=== PATIENT | male | born 1970 | race Caucasian/White ===

== ENCOUNTER → 2016-10-19 14:18 | Outpatient (CLI) | payer OTHER | END | disposition home or self-care (01) | LOC: D.RAD 14:15 | DX: M46.92 Unspecified inflammatory spondylopathy, cervical region (principal) ==

== ENCOUNTER 2017-09-08 13:44 | Emergency (ER) | payer OTHER ==
[~2017-09-08] VITALS: Ht 182.9 cm; Wt 122.7 kg
[2017-09-08 14:13] VITALS: Ht 182.9 cm; Wt 122.7 kg
[2017-09-08] MEDS ORDERED: PRINIVIL20 MG PO (14:16)
[2017-09-08 16:22] VITALS: BP 153/96
== END 2017-09-08 16:23 | disposition home or self-care (01) ==
LOC: D.ER 13:44
DX: M54.2 Cervicalgia (principal); M25.512 Pain in left shoulder; M25.511 Pain in right shoulder; R07.81 Pleurodynia; M19.90 Unspecified osteoarthritis, unspecified site; I10 Essential (primary) hypertension; F17.200 Nicotine dependence, unspecified, uncomplicated

== ENCOUNTER 2019-10-05 01:40 | Inpatient (IN) | payer OTHER ==
[2019-10-05] VITALS (7 sets, daily range): BP systolic 115–142; BP diastolic 80–95; BMI 41.6
[~2019-10-05] VITALS: Ht 182.9 cm; Wt 138.8 kg
[~2019-10-05 01:40] MED LIST: PRINIVIL20 MG PO
[2019-10-05] MEDS ORDERED: IBUPROFEN800 MG PO (01:47)
[2019-10-05] MEDS ORDERED: PAMELOR 25 MG C25 MG PO (01:47)
[2019-10-05] MEDS ORDERED: BUTRANS1 EAC4 TRANSDERM (01:47)
[2019-10-05] MEDS ORDERED: LISINOPRIL-HCT1 EAC8 PO (01:47)
[2019-10-05] MEDS ORDERED: XANAX2 MG PO (01:48)
[2019-10-05] MEDS ORDERED: CYCLOBENZAPRINE10 MG PO (01:48)
[2019-10-05] MEDS ORDERED: TOPROL XL25 MG PO (01:48)
[2019-10-05] MEDS ORDERED: ZOCOR80 MG PO (01:49)
[2019-10-05 02:33] LABS: BASOPHILS 0.3 % (0-2); EOSINOPHILS 1.1 % (0-7); HEMATOCRIT 50.6 % (42.0-54.0); HEMOGLOBIN 17.7 g/dL (13.5-17.5); IMMATURE GRANULOCYTES 0.3 % (0-5); LYMPHOCYTES 19.1 % (15-50); MCH 32.2 pg (26.0-34.0); MEAN PLATELET VOLUME 9.7 fL (7.4-10.4); MONOCYTES 7.4 % (2-11); NEUTROPHILS 71.8 % (40-80); PLATELET COUNT 337 10x3/uL (130-400); RDW 13.7 % (11.5-14.5); WBC 15.1 10x3/uL (4.8-10.8)
[2019-10-05 02:40] LABS: UDS - AMPHET NEGATIVE QUAL (NEGATIVE); UDS - BARB NEGATIVE QUAL (NEGATIVE); UDS - BENZO POSITIVE QUAL (NEGATIVE); UDS - COCAINE NEGATIVE QUAL (NEGATIVE); UDS - OPIATE NEGATIVE QUAL (NEGATIVE); UDS - PCP NEGATIVE QUAL (NEGATIVE); UDS - THC NEGATIVE QUAL (NEGATIVE)
[2019-10-05 02:42] LABS: CALC OSMOLALITY 278 mosm/kg (275-300); CALCIUM 9.6 mg/dL (8.5-10.1); CARBON DIOXIDE 31.6 mmol/L (21.0-32.0); CHLORIDE - SERUM 99 mmol/L (98-107); GLUCOSE 166 mg/dL (74-106); POTASSIUM - SERUM 3.8 mmol/L (3.5-5.1); SODIUM 138 mmol/L (136-145); UREA NITROGEN 11 mg/dL (7-18); eGFR NON AFRICAN AMERICAN 84 mL/min (90-120)
[2019-10-05 02:50] LABS: BILIRUBIN NEGATIVE (NEGATIVE); GLUCOSE NEGATIVE (NEGATIVE); KETONE NEGATIVE (NEGATIVE); NITRITE NEGATIVE (NEGATIVE); UROBILINOGEN NORMAL (NORMAL)
[2019-10-05 02:52] LABS: BACTERIA FEW /hpf (NEGATIVE); EPITHELIAL CELLS 0-5 /hpf (0-5); HYALINE CAST 0-5 /lpf (NONE SEEN); RED CELLS - URINE 0-5 /hpf (0-5); WHITE CELLS - URINE 0-5 /hpf (NEGATIVE)
[2019-10-05 02:57] LABS: ALKALINE PHOSPHATASE 90 U/L (30-120); ALT (SGPT) 66 U/L (10-68); BILIRUBIN - TOTAL 0.43 mg/dL (0.2-1.3); C-REACTIVE PROTEIN 2.3 mg/dL (0.0-0.9); LIPASE 136 U/L (73-393); PRO BNP 42 pg/mL (0-125); PROTEIN - SERUM 7.7 g/dL (6.4-8.2)
[2019-10-05 02:58] LABS: TROPONIN-I < 0.017 ng/mL (0.000-0.060)
--- NOTE | 2019-10-05 08:49 | NUR ---
ASSESSMENT PER ADMIT FLOW SHEET. PATIENT IS WITHOUT DISTRESS. NGT ARACELI WU.ORIENTATION TO ROOM.CALL LIGHT IN REACH.
--- NOTE | 2019-10-05 14:28 | NUR ---
ADMINISTERED PRN MORPHINE FOR PAIN 6/10 IN ABDOMEN. TOLERATED WELL. RESTING COMFORTABLY AND DENIES ANY NEEDS.
--- NOTE | 2019-10-05 22:30 | NUR ---
PT REPORTS DR RICO STATED HE WOUOLD ADJUST/ADD PRN PAIN/ANXIETY MEDS. NO NEW ORDERS NOTED. CHARGE NURSE STATES SHE PAGED TRISHA AND WAS INFORMED HE IS TIED UP IN EMERGENCY AND TO TRY TO CALL AGAIN AFTER WHILE. PT INFORMED, VERBALIZED UNDERSTANDING. PTs FAMILY MEMBER CONCERNED PT UNABLE TO WEAR CPAP. 3L O2 APPLIED WHILE PT IS SLEEPING AND CONTINUOUS O2 MONITOR IN USE. NO FURTHER NEEDS VOICED, CTM.
--- NOTE | 2019-10-06 02:57 | NUR ---
I have reviewed this patient and I concur with the Shift Assessment completed by the Licensed Practical Nurse today this shift.
[2019-10-06 04:30] VITALS: BP 140/98
[2019-10-06 06:16] LABS: BASOPHILS 0.2 % (0-2); EOSINOPHILS 1.6 % (0-7); HEMATOCRIT 50.2 % (42.0-54.0); HEMOGLOBIN 16.7 g/dL (13.5-17.5); IMMATURE GRANULOCYTES 0.2 % (0-5); LYMPHOCYTES 23.1 % (15-50); MCH 31.5 pg (26.0-34.0); MCHC 33.3 g/dL (31.0-37.0); MEAN PLATELET VOLUME 9.7 fL (7.4-10.4); MONOCYTES 14.1 % (2-11); NEUTROPHILS 60.8 % (40-80); PLATELET COUNT 324 10x3/uL (130-400); RDW 14.5 % (11.5-14.5)
[2019-10-06 06:26] LABS: MCV 94.7 fL (80.0-100.0); WBC 10.9 10x3/uL (4.8-10.8)
[2019-10-06 06:30] LABS: ANION GAP 9.4 mmol/L (8-16); CALCIUM 8.7 mg/dL (8.5-10.1); CARBON DIOXIDE 29.7 mmol/L (21.0-32.0); CREATININE - SERUM 1.2 mg/dL (0.6-1.3); POTASSIUM - SERUM 4.1 mmol/L (3.5-5.1)
--- NOTE | 2019-10-06 07:16 | NUR ---
WALKING ROUNDS COMPLETE, PT VOICES BEING UNCOMFORTABLE ALL NIGHT, CALL PLACED TO DOCTOR TO CHANGE PAIN MEDS, WAITING ON REPLY, NO OTHER NEEDS VOICED, WILL MONITOR
[2019-10-06 08:09] VITALS: BP 137/89
--- NOTE | 2019-10-06 09:00 | NUR ---
GAVE PT SCHEDULED MEDS ALONG WITH MORPHINE 4MG IVP FOR PAIN, RATES PAIN 10/10 IN ABDOMEN, NO OTHER NEEDS VOICED, WILL MONITOR
--- NOTE | 2019-10-06 10:25 | NUR ---
PT UNHOOKED FROM NG TUBE SO HE CAN GO HAVE GASTROGRAFIN SWALLOW, PT TAKEN DOWN BY WHEELCHAIR, WILL MONITOR FOR RETURN
--- NOTE | 2019-10-06 12:01 | NUR ---
PT BACK IN ROOM, HOOKED BACK TO IV FLUIDS, PT WILL STAY UNHOOKED FROM NG TUBE TIL SWALLOW STUDY COMPLETE, PT IS AWARE OF NEEDING TO SIT UP AT THIS TIME, WILL MONITOR
--- NOTE | 2019-10-06 12:19 | NUR ---
HOOKED PT UP TO DILAUDID HIGHWAY WORKER, INSTRUCTED PT ON USE OF HIGHWAY WORKER, PT AND VERBALIZE UNDERSTANDING, WILL MONITOR
[2019-10-06 12:54] VITALS: BP 146/77
[2019-10-06 13:47] VITALS: Ht 182.9 cm; Wt 138.8 kg
--- NOTE | 2019-10-06 14:15 | NUR ---
HOOKED NG TUBE BACK TO LIS, PT IS FINISHED WITH SMALL BOWEL SERIES
--- NOTE | 2019-10-06 16:05 | NUR ---
REMOVED PT NG TUBE, PT TOLERATED WELL, EXPLAINED TO PT HE WAS ABLE TO HAVE CLEAR LIQUIDS, AT BEDSIDE, VERBALIZED UNDERSTANDING, WILL MONITOR
[2019-10-06 17:24] VITALS: BP 132/92
--- NOTE | 2019-10-06 19:45 | NUR ---
A&O X 4. PT STATES HE FEELS MUCH BETTER TODAY. TOLERATING CLD, NO N/V. STATES PAIN IS WELL CONTROLLED WITH SQUEAK RATTLE AND LEAK REPAIRER, HOME CPAP AT BEDSIDE, NO NEEDS AT THIS TIME.
[2019-10-06 20:00] VITALS: BP 126/86
[2019-10-07] VITALS: BP 120/70
--- NOTE | 2019-10-07 01:46 | NUR ---
I have reviewed this patient and I concur with the Shift Assessment completed by the Licensed Practical Nurse today this shift.
[2019-10-07 04:00] VITALS: BP 115/64
--- NOTE | 2019-10-07 04:00 | NUR ---
REPORTS HE FEELS GREAT. NO N/V. LOW PAIN LEVEL OF 2-3. PASSING GAS. CTM.
[2019-10-07 06:13] LABS: BASOPHILS 0.2 % (0-2); IMMATURE GRANULOCYTES 0.1 % (0-5); LYMPHOCYTES 29.5 % (15-50); MCH 31.4 pg (26.0-34.0); MCHC 33.3 g/dL (31.0-37.0); MCV 94.3 fL (80.0-100.0); MEAN PLATELET VOLUME 9.7 fL (7.4-10.4); MONOCYTES 13.3 % (2-11); NEUTROPHILS 53.9 % (40-80); PLATELET COUNT 272 10x3/uL (130-400); RDW 14.5 % (11.5-14.5); WBC 9.4 10x3/uL (4.8-10.8)
[2019-10-07 06:42] LABS: HEMATOCRIT 39.6 % (42.0-54.0); HEMOGLOBIN 13.2 g/dL (13.5-17.5)
[2019-10-07 06:51] LABS: CALC OSMOLALITY 276 mosm/kg (275-300); CALCIUM 7.6 mg/dL (8.5-10.1); CARBON DIOXIDE 25.4 mmol/L (21.0-32.0); CHLORIDE - SERUM 105 mmol/L (98-107); CREATININE - SERUM 0.9 mg/dL (0.6-1.3); POTASSIUM - SERUM 3.6 mmol/L (3.5-5.1); SODIUM 140 mmol/L (136-145); UREA NITROGEN 11 mg/dL (7-18); eGFR NON AFRICAN AMERICAN > 90 mL/min (90-120)
[2019-10-07 06:53] LABS: GLUCOSE 75 mg/dL (74-106)
[2019-10-07 08:50] VITALS: BP 108/67
--- NOTE | 2019-10-07 09:38 | NUR ---
PT ALERT AND ORIENTED X4 UPON ENETERING. ADMINISTERED MEDICATION, NO DIFFICULTIES. UPRIGHT ON BED SIDE. DENIES ANY NEEDS. WILL CONTINUE TO MONITOR.
--- NOTE | 2019-10-07 11:05 | NUR ---
PLACED NEW DILAUDID WATER SAFETY INSTRUCTOR SYRINGE. PT IN BEDSIDE CHAIR. FAMILY AT BEDSIDE. DENIES ANY NEEDS. WILL CONTINUE TO MONITOR.
--- NOTE | 2019-10-07 11:13 | NUR ---
I have reviewed this patient and I concur with the Shift Assessment completed by the Licensed Practical Nurse today this shift.
[2019-10-07 13:31] VITALS: BP 103/61
--- NOTE | 2019-10-07 15:05 | NUR ---
ADMINISTERED MEDICATION, NO DIFFICULTIES. PT IV IS INFILTRATED, DENIES ANY PAIN AND REQUESTED TO LEAVE IT IN BECAUSE HE IS ABOUT TO DC AND DOES NOT WANT ANOTHER TO HAVE TO BE PLACED. PROVIDED PT WITH A WARM COMPRESS AND DISCONNECTED ALL FLUIDS. DENIES ANY OTHER NEEDS. WILL CONTINUE TO MONITOR.
--- NOTE | 2019-10-07 18:22 | NUR ---
REMOVED IV FROM RIGHT AC WITH CATHETER TIP INTACT, COVERED WITH GAUZE AND TAPE. TOLERATED WELL. SLIGHT SWELLING TO THE ARM, INSTRUCTED PT TO APPLY WARM COMPRESS AT HOME TO HELP SWELLING GO DOWN. PT HAS SIGNED ALL NECESSARY DISCHARGE PAPERWORK. WILL BE ESCORTED OUT BY FAMILY MEMBER. DENIES NEEDING A WHEELCHAIR.
== END 2019-10-07 18:23 | disposition home or self-care (01) | DRG 390 ==
LOC: D.ER 01:40 → D.MS 05:42 → D.EDHOLD 05:42 → OBSVTIME 05:43 → D.EDHOLD 07:45 → D.MS 07:45 → D.EDHOLD 09:57 → D.MS 09:57
PROVIDERS: Family Medicine; ADMIT Family Medicine; ATTEND Family Medicine
PROC: 0D9670Z Drainage of Stomach with Drainage Device, Via Natural or Artificial Opening (ICD-10-PCS; principal; 2019-10-05)
DX: K56.50 Intestinal adhesions [bands], unspecified as to partial versus complete obstruction (principal); D49.512 Neoplasm of unspecified behavior of left kidney; I10 Essential (primary) hypertension; E78.5 Hyperlipidemia, unspecified

== ENCOUNTER → 2019-10-28 07:57 | Outpatient (CLI) | payer MEDICARE, OTHER ==
[2019-10-06 13:47] VITALS: BMI 41.5
[~2019-10-28 07:57] MED LIST changes: +BUTRANS1 EAC4 TRANSDERM; +CYCLOBENZAPRINE10 MG PO; +IBUPROFEN800 MG PO; +LISINOPRIL-HCT1 EAC8 PO; +PAMELOR 25 MG C25 MG PO; +TOPROL XL25 MG PO; +XANAX2 MG PO; +ZOCOR80 MG PO
== END | disposition home or self-care (01) ==
LOC: D.CT 10-23 08:30 → D.NM 07:57
PROVIDERS: ATTEND Urology
DX: N28.89 Other specified disorders of kidney and ureter (principal)

== ENCOUNTER 2019-12-01 05:40 | Day surgery (SDC) | payer MEDICARE, OTHER ==
[~2019-12-01] VITALS: Ht 185.4 cm; Wt 127.3 kg
[2019-12-01 06:26] LABS: BASOPHILS 0.4 % (0-2); EOSINOPHILS 3.1 % (0-7); HEMATOCRIT 46.6 % (42.0-54.0); IMMATURE GRANULOCYTES 0.2 % (0-5); LYMPHOCYTES 36.1 % (15-50); MCH 31.4 pg (26.0-34.0); MCHC 34.3 g/dL (31.0-37.0); MCV 91.4 fL (80.0-100.0); MEAN PLATELET VOLUME 9.7 fL (7.4-10.4); MONOCYTES 10.2 % (2-11); PLATELET COUNT 284 10x3/uL (130-400); RDW 14.2 % (11.5-14.5); WBC 9.9 10x3/uL (4.8-10.8)
[2019-12-01 06:41] VITALS: Ht 185.4 cm; Wt 127.3 kg
[2019-12-01 06:44] LABS: CALC OSMOLALITY 279 mosm/kg (275-300); CALCIUM 9.2 mg/dL (8.5-10.1); CARBON DIOXIDE 26.5 mmol/L (21.0-32.0); CHLORIDE - SERUM 102 mmol/L (98-107); POTASSIUM - SERUM 3.6 mmol/L (3.5-5.1); SODIUM 137 mmol/L (136-145); UREA NITROGEN 12 mg/dL (7-18); eGFR NON AFRICAN AMERICAN 84 mL/min (90-120)
[2019-12-01 06:51] LABS: GLUCOSE 206 mg/dL (74-106)
[2019-12-01 06:56] LABS: APTT 25.8 SECONDS (22.8-39.4); INR 0.96 (0.85-1.17); PROTIME 12.7 SECONDS (11.6-15.0)
[2019-12-01 09:27] VITALS: BP 116/79
--- NOTE | 2019-12-01 09:41 | NUR ---
0922 SEE POST PROCEDURE VITAL SIGNS CHECKLIST FOR VITAL SIGNS. TIME FRAME FOR TODAYS STAY GIVEN, BEDREST INSTRUCTIONS GIVEN.
== END 2019-12-01 13:05 | disposition home or self-care (01) ==
LOC: D.SP 05:40 → D.RAD 08:00 → D.SP 08:00
PROVIDERS: ATTEND General Practice
DX: D41.02 Neoplasm of uncertain behavior of left kidney (principal)

== ENCOUNTER 2020-06-20 14:51 | Inpatient (IN) | payer MEDICARE, OTHER ==
[~2020-06-20] VITALS: Ht 185.4 cm; Wt 129.3 kg
[2020-06-20 18:14] LABS: CALC OSMOLALITY 276 mosm/kg (275-300); CALCIUM 9.4 mg/dL (8.5-10.1); CARBON DIOXIDE 26.7 mmol/L (21.0-32.0); CHLORIDE - SERUM 100 mmol/L (98-107); CREATININE - SERUM 0.8 mg/dL (0.6-1.3); GLUCOSE 242 mg/dL (74-106); SODIUM 135 mmol/L (136-145); UREA NITROGEN 9 mg/dL (7-18); eGFR NON AFRICAN AMERICAN > 90 mL/min (90-120)
[2020-06-20 18:20] LABS: ALBUMIN 3.8 g/dL (3.4-5.0); ALKALINE PHOSPHATASE 112 U/L (30-120); ALT (SGPT) 65 U/L (10-68); BILIRUBIN - TOTAL 0.78 mg/dL (0.2-1.3); LIPASE 182 U/L (73-393); PROTEIN - SERUM 7.8 g/dL (6.4-8.2)
[2020-06-20 18:24] LABS: BILIRUBIN NEGATIVE (NEGATIVE); KETONE LARGE mg/dL (NEGATIVE); NITRITE NEGATIVE (NEGATIVE); UROBILINOGEN NORMAL mg/dL (< 2)
[2020-06-20 18:26] LABS: WHITE CELLS - URINE OCC HPF (0-1)
[2020-06-20 18:27] LABS: BACTERIA OCC HPF (NONE SEEN); SQUAMOUS EPITHELIAL OCC HPF (0-4)
[2020-06-20 18:35] LABS: BASOPHILS 0.2 % (0-2); EOSINOPHILS 1.1 % (0-7); HEMATOCRIT 50.3 % (42.0-54.0); HEMOGLOBIN 17.7 g/dL (13.5-17.5); IMMATURE GRANULOCYTES 0.2 % (0-5); LYMPHOCYTES 17.6 % (15-50); MCHC 35.2 g/dL (31.0-37.0); MEAN PLATELET VOLUME 10.5 fL (7.4-10.4); MONOCYTES 9.5 % (2-11); NEUTROPHIL ABS# 7.31 10x3/uL (1.78-5.38); NEUTROPHILS 71.4 % (40-80); RBC 5.53 10x6/uL (4.20-6.10); RDW 14.2 % (11.5-14.5); WBC 10.2 10x3/uL (4.8-10.8)
[2020-06-20 18:37] LABS: PLATELET COUNT 144 10x3/uL (130-400)
[2020-06-20 20:55] LABS: ANION GAP 18.2 mmol/L (8-16); CARBON DIOXIDE 21.9 mmol/L (21.0-32.0); POTASSIUM - SERUM 4.1 mmol/L (3.5-5.1)
[2020-06-20 22:04] VITALS: BP 175/111; BMI 37.6
[2020-06-21] VITALS: BP 175/111
[2020-06-21 04:00] VITALS: BP 167/99
[2020-06-21 08:02] VITALS: BP 169/105
[2020-06-21 09:14] LABS: ALBUMIN 3.1 g/dL (3.4-5.0); ALKALINE PHOSPHATASE 93 U/L (30-120); ALT (SGPT) 51 U/L (10-68); BILIRUBIN - DIRECT 0.21 mg/dL (0.00-0.30); BILIRUBIN - INDIRECT 0.63 mg/dL (0.00-1.00); BILIRUBIN - TOTAL 0.84 mg/dL (0.2-1.3); CALC OSMOLALITY 278 mosm/kg (275-300); CALCIUM 8.2 mg/dL (8.5-10.1); CHLORIDE - SERUM 101 mmol/L (98-107); CKMB 0.4 U/L (0.0-3.6); CREATINE KINASE 68 UL (21-232); CREATININE - SERUM 0.6 mg/dL (0.6-1.3); GLUCOSE 190 mg/dL (74-106); POTASSIUM - SERUM 4.1 mmol/L (3.5-5.1); PROTEIN - SERUM 6.5 g/dL (6.4-8.2); SODIUM 138 mmol/L (136-145); UREA NITROGEN 8 mg/dL (7-18); eGFR NON AFRICAN AMERICAN > 90 mL/min (90-120)
[2020-06-21 10:02] LABS: BASOPHILS 0.2 % (0-2); EOSINOPHILS 1.3 % (0-7); HEMATOCRIT 44.9 % (42.0-54.0); HEMOGLOBIN 15.4 g/dL (13.5-17.5); IMMATURE GRANULOCYTES 0.2 % (0-5); LYMPHOCYTE ABS# 1.84 10x3/uL (1.32-3.57); MCH 31.3 pg (26.0-34.0); MCHC 34.3 g/dL (31.0-37.0); MCV 91.3 fL (80.0-100.0); MEAN PLATELET VOLUME 10.4 fL (7.4-10.4); MONOCYTES 13.8 % (2-11); NEUTROPHIL ABS# 5.91 10x3/uL (1.78-5.38); NEUTROPHILS 64.5 % (40-80); PLATELET COUNT 152 10x3/uL (130-400); RBC 4.92 10x6/uL (4.20-6.10); RDW 14.4 % (11.5-14.5); WBC 9.2 10x3/uL (4.8-10.8)
--- NOTE | 2020-06-21 12:19 | NUR ---
PATIENT SLEEP ON LEFT SIDE, CPAP MACHINE ON, NO SIGNS OF DISTRESS, CONTINUE WITH PLAN OF CARE
[2020-06-21 13:00] VITALS: Ht 185.4 cm; Wt 129.3 kg
[2020-06-21 13:19] VITALS: BP 148/90
[2020-06-21 17:07] VITALS: BP 141/89
[2020-06-21 20:00] VITALS: BP 118/76
--- NOTE | 2020-06-21 21:00 | NUR ---
PT SITTING UP IN BED WITHOUT DISTRESS, AOX4. REQUESTED AND GIVEN TYLENOL FOR HEADACHE 05/28. DENIES OTHER NEEDS. CL IN REACH
[2020-06-22 04:00] VITALS: BP 145/94
[2020-06-22 08:28] VITALS: BP 137/90
[2020-06-22 16:23] VITALS: BP 164/88
[2020-06-22 20:00] VITALS: BP 169/108
--- NOTE | 2020-06-22 20:00 | NUR ---
PT SITTING UP IN BED WITHOUT DISTRESS, AOX4. AT BEDSIDE. STATES PAIN 11/27. GAVE MORPHINE ORDERED. PT STATES HE HAS NOT HAD A BOWEL MOVEMENT SINCE SATURDAY AND HE IS CONCERNED THAT HE COULD GET ANOTHER BOWEL OBSTRUCTION. PT HAS BEEN UP AND WALKING IN ROOM AND IN HALLWAY TO HELP AND HAS NOT HAD ONE. CALLED DR RICO AND RECIEVED ORDER FOR MAG CITRATE. GAVE ORDERED
[2020-06-23] VITALS: BP 138/106
[2020-06-23 04:00] VITALS: BP 162/100
[2020-06-23 05:59] LABS: BASOPHILS 0.1 % (0-2); EOSINOPHILS 0.4 % (0-7); HEMATOCRIT 49.3 % (42.0-54.0); HEMOGLOBIN 16.8 g/dL (13.5-17.5); IMMATURE GRANULOCYTES 0.3 % (0-5); LYMPHOCYTE ABS# 1.63 10x3/uL (1.32-3.57); LYMPHOCYTES 13.8 % (15-50); MCH 31.1 pg (26.0-34.0); MCHC 34.1 g/dL (31.0-37.0); MCV 91.1 fL (80.0-100.0); MEAN PLATELET VOLUME 10.4 fL (7.4-10.4); MONOCYTES 9.8 % (2-11); NEUTROPHILS 75.6 % (40-80); RBC 5.41 10x6/uL (4.20-6.10); RDW 14.4 % (11.5-14.5)
[2020-06-23 06:04] LABS: PLATELET COUNT 240 10x3/uL (130-400); WBC 11.8 10x3/uL (4.8-10.8)
[2020-06-23 06:26] LABS: ALBUMIN 3.2 g/dL (3.4-5.0); ALKALINE PHOSPHATASE 124 U/L (30-120); BILIRUBIN - TOTAL 1.16 mg/dL (0.2-1.3); CALCIUM 9.1 mg/dL (8.5-10.1); CHLORIDE - SERUM 96 mmol/L (98-107); PROTEIN - SERUM 7.6 g/dL (6.4-8.2); SODIUM 136 mmol/L (136-145); UREA NITROGEN 10 mg/dL (7-18)
[2020-06-23 06:27] LABS: LIPASE 38 U/L (73-393)
[2020-06-23 06:28] LABS: ALT (SGPT) 86 U/L (10-68); CALC OSMOLALITY 279 mosm/kg (275-300); CARBON DIOXIDE 30.7 mmol/L (21.0-32.0); CREATININE - SERUM 0.9 mg/dL (0.6-1.3); GLUCOSE 258 mg/dL (74-106); POTASSIUM - SERUM 3.4 mmol/L (3.5-5.1); eGFR NON AFRICAN AMERICAN > 90 mL/min (90-120)
--- NOTE | 2020-06-23 07:41 | NUR ---
ALERT AND ORIENTED. ASSESSMENT COMPLETE. REQUESTED AND GIVEN PRN PAIN MEDICATION. DENIES NEEDS. BED LOW. CALL ROY AND PERSONAL ITEMS IN REACH. WILL CONTINUE TO MONITOR.
--- NOTE | 2020-06-23 08:41 | NUR ---
IS PROVIDED TO PATIENT. EDUCATION PROVIDED ON USE. VERBALIZED UNDERSTANDING. STATES HAS USED IS MANY TIMES BEFORE.
[2020-06-23 09:19] VITALS: BP 153/102
[2020-06-23 12:50] VITALS: BP 138/78
--- NOTE | 2020-06-23 13:34 | NUR ---
PATIENT'S POTASSIUM 3.4. NOT ON ELECTROLYTE PROTOCOL. MD MADE AWARE. STATES WILL "TAKE CARE OF IT."
[2020-06-23 16:12] VITALS: BP 139/85
--- NOTE | 2020-06-23 18:26 | NUR ---
C/O ABD PAIN RATING 6/10 ON PAIN SCALE. WAS MEDICATED WITH MORPHINE PER ORDERS.
[2020-06-23 20:00] VITALS: BP 122/71
[2020-06-24 04:00] VITALS: BP 112/63
[2020-06-24 06:56] LABS: ALBUMIN 2.9 g/dL (3.4-5.0); ALKALINE PHOSPHATASE 136 U/L (30-120); ALT (SGPT) 67 U/L (10-68); CALC OSMOLALITY 278 mosm/kg (275-300); CALCIUM 9.2 mg/dL (8.5-10.1); CARBON DIOXIDE 32.3 mmol/L (21.0-32.0); CHLORIDE - SERUM 98 mmol/L (98-107); CREATININE - SERUM 0.9 mg/dL (0.6-1.3); GLUCOSE 233 mg/dL (74-106); POTASSIUM - SERUM 3.4 mmol/L (3.5-5.1); PROTEIN - SERUM 7.1 g/dL (6.4-8.2); SODIUM 136 mmol/L (136-145); UREA NITROGEN 12 mg/dL (7-18); eGFR NON AFRICAN AMERICAN > 90 mL/min (90-120)
--- NOTE | 2020-06-24 07:30 | NUR ---
RESTING IN BED WITH EYES CLOSED, AT THE BEDSIDE. IV LOCATED TO LEFT HAND CURRENTLY SL. CURRENTLY ON CPAP. NO CURRENT S/S OF DISTRESS AT THIS TIME, DENIES CURRENT NEEDS, WILL CONT TO MONITOR.
[2020-06-24 07:33] LABS: BASOPHILS 0.2 % (0-2); EOSINOPHILS 1.6 % (0-7); HEMATOCRIT 47.8 % (42.0-54.0); HEMOGLOBIN 16.1 g/dL (13.5-17.5); IMMATURE GRANULOCYTES 0.4 % (0-5); LYMPHOCYTE ABS# 2.61 10x3/uL (1.32-3.57); LYMPHOCYTES 23.8 % (15-50); MCH 31.2 pg (26.0-34.0); MCHC 33.7 g/dL (31.0-37.0); MCV 92.6 fL (80.0-100.0); MEAN PLATELET VOLUME 10.5 fL (7.4-10.4); MONOCYTES 11.6 % (2-11); NEUTROPHIL ABS# 6.86 10x3/uL (1.78-5.38); NEUTROPHILS 62.4 % (40-80); PLATELET COUNT 217 10x3/uL (130-400); RBC 5.16 10x6/uL (4.20-6.10); RDW 14.4 % (11.5-14.5)
[2020-06-24 09:40] VITALS: BP 121/68
--- NOTE | 2020-06-24 09:52 | MORECARE ---
CASE MANAGEMENT DISCHARGE SUMMARY PATIENT: KIERAN MARTIN UNIT: [id number] ADM DATE: 06/20/20 AGE: 50 : 70 SEX: M ROOM/BED: D.2236 AUTHOR: WILBUR,DOC PHYSICIAN: REFERRING PHYSICIAN: ALLISON JOHN MD DATE OF SERVICE: 06/24/20 Case Management Discharge Planning Summary COMMENTS ENTERED DATE: 06/24/20 9:50 CT COMMENT TYPE: Discharge Planning REVIEWER: Justine Lassiter CM met with patient to complete initial dc planning assessment. CM educated patient on the CM role and verbal consent given by patient to complete assessment. Patient lives at with his where he is independent with his care. At discharge patient plans to return home and feels this is a safe discharge. CM discussed availability of home health, rehab services, and medical equipment. 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 Patient denied known discharge needs at this time. CM will continue to follow and will assist as needed with dc plans/needs. DCP REVIEW SUMMARY ANTICIPATED D/C DATE: EXPECTED LOS : CASE STATUS: DCP Initiated INITIAL REVIEW: 06/20/2020 INITIAL REVIEWER: Justine Lassiter FINAL DISCHARGE DISPOSITION: 01 : Home or Self Care (Routine Discharge) FINAL REVIEWER: FINAL REVIEW DATE: DCP [facility] Questions & Answers QUESTION: ANSWER : PATIENT: KIERAN MARTIN ENCOUNTER: [id number] MEDICAL RECORD#: [id number] ADMISSION DATE: 06/20/2020 DISCHARGE DATE: ATTENDING MD: ALLISON MONROE : AGE: 50 MARITAL STATUS: M DC PLAN ID: [id number] FACILITY: [facility] PRINTED ON: 06/24/20 9:51 CT All edits/amendments must be made on the electronic document DICTATION DATE: 06/24/20950 COPYRIGHT MANAGER: GERMAN 06/24/20950 RPT#: [id number] DC DATE: STATUS: ADM IN [facility] [address] [place] [address] END OF REPORT
[2020-06-24] MEDS ORDERED: LEVOFLOXACIN500 MG PO (10:03)
[2020-06-24] MEDS ORDERED: HYDROCODON-ACE1 EAC7 PO (10:03)
--- NOTE | 2020-06-24 10:37 | NUR ---
DC EDUCATION PROVIDED BOTH WRITTEN AND VERBAL TO PATIENT AND AT BEDSIDE. VERBALIZED UNDERSTANDING. DENY FURTHER QUESTIONS. IV REMOVED FROM LEFT HAND WITH TIP INTACT. RX FOR ABX AND PRN PAIN MEDICATION SENT WITH PATIENT. DENIES FURTHER NEEDS. DC HOME WITH WITH ALL BELONGIGNS.
--- NOTE | 2020-06-27 14:54 | MORECARE ---
CASE MANAGEMENT DISCHARGE SUMMARY PATIENT: KIERAN MARTIN UNIT: [id number] ADM DATE: 06/20/20 AGE: 50 : 70 SEX: M ROOM/BED: D.2236 AUTHOR: WILBUR,DOC PHYSICIAN: REFERRING PHYSICIAN: ALLISON JOHN MD DATE OF SERVICE: 06/27/20 Case Management Discharge Planning Summary COMMENTS ENTERED DATE: 06/24/20 9:50 CT COMMENT TYPE: Discharge Planning REVIEWER: Justine Lassiter CM met with patient to complete initial dc planning assessment. CM educated patient on the CM role and verbal consent given by patient to complete assessment. Patient lives at with his where he is independent with his care. At discharge patient plans to return home and feels this is a safe discharge. CM discussed availability of home health, rehab services, and medical equipment. 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 Patient denied known discharge needs at this time. CM will continue to follow and will assist as needed with dc plans/needs. DCP REVIEW SUMMARY ANTICIPATED D/C DATE: EXPECTED LOS : CASE STATUS: DCP Initiated INITIAL REVIEW: 06/20/2020 INITIAL REVIEWER: Justine Lassiter FINAL DISCHARGE DISPOSITION: 01 : Home or Self Care (Routine Discharge) FINAL REVIEWER: FINAL REVIEW DATE: DCP [employer] Questions & Answers QUESTION: ANSWER : PATIENT: KIERAN MARTIN ENCOUNTER: [id number] MEDICAL RECORD#: [id number] ADMISSION DATE: 06/20/2020 DISCHARGE DATE: 06/24/2020 ATTENDING MD: ALLISON MONROE : AGE: 50 MARITAL STATUS: M DC PLAN ID: [id number] FACILITY: [facility] PRINTED ON: 06/27/20 14:54 CT All edits/amendments must be made on the electronic document DICTATION DATE: 06/27/201453 LAWN MOWER: GERMAN 06/27/201453 RPT#: [id number] DC DATE:06/24/20 STATUS: DIS IN [facility] [address] [place] [address] END OF REPORT
== END 2020-06-24 11:35 | disposition home or self-care (01) | DRG 417 ==
LOC: D.ER 14:51 → D.MS 20:46
PROVIDERS: Emergency Medicine; Family Medicine; Surgery; ADMIT Family Medicine; ATTEND Family Medicine
PROC: 0DNU3ZZ Release Omentum, Percutaneous Approach (ICD-10-PCS; 2020-06-22)
PROC: BF502Z0 Other Imaging of Bile Ducts using Fluorescing Agent, Intraoperative (ICD-10-PCS; 2020-06-22)
PROC: 0FT44ZZ Resection of Gallbladder, Percutaneous Endoscopic Approach (ICD-10-PCS; principal; 2020-06-22 11:45)
DX: K82.1 Hydrops of gallbladder (principal); K85.10 Biliary acute pancreatitis without necrosis or infection; K56.609 Unspecified intestinal obstruction, unspecified as to partial versus complete obstruction; K80.20 Calculus of gallbladder without cholecystitis without obstruction; K76.0 Fatty (change of) liver, not elsewhere classified; I10 Essential (primary) hypertension; E78.5 Hyperlipidemia, unspecified; Z72.0 Tobacco use